=== PATIENT | male | born 1940 | race Caucasian/White ===

== ENCOUNTER 2017-12-24 12:50 | Day surgery (SDC) | payer MEDICARE ==
[~2017-12-24 12:50] MED LIST: 1-ME1LIQ PO; ASPI1TAB7 PO; FLON0.053; GEMF600T PO; LEVO.025 PO; LOSA100T3 PO; METF-324 PO; METO100T PO; OMEP40CA2 PO; SIMV40 PO; TRIA.1%T TOP
[2017-12-24 13:26] VITALS: BP 153/89; PULSE 75; RESP 20; TEMP 97.9; O2SAT 96
[2017-12-24] MEDS ORDERED: OMEP40CA2 (13:49)
[2017-12-24] MEDS ORDERED: SIMV40TA PO (13:49)
[2017-12-24] MEDS ORDERED: METF500T4 PO (13:49)
[2017-12-24] MEDS ORDERED: ASPI81TA23 PO (13:49)
[2017-12-24] MEDS ORDERED: LOSA100T PO (13:49)
[2017-12-24] MEDS ORDERED: METO-489 PO (13:49)
[2017-12-24] MEDS ORDERED: TRIAMCINOLONE ACETONIDE 40 MG/ML VIAL ONE (14:09)
[2017-12-24] MEDS ORDERED: IOHEXOL 300 MG/ML 50 ML BTL (for RAD DIAG) OTHER ONE (14:25)
[2017-12-24 14:30] VITALS: BP 153/87; PULSE 70; RESP 20; TEMP 97.9; O2SAT 94
--- NOTE | 2017-12-24 14:35 | PD.RAD ---
Post Procedure Progress Note Pre Procedure Diagnosis: (1) Shoulder pain, left Post Procedure Diagnosis: (1) Shoulder pain, left Procedure Date: Dec 24, 2017 Supervising Radiologist: Henrry Rdz JR Proceduralist/Assist: Hannah Chandra, RT(R), Marlee Mcmahon RT(R) Anesthesia: Local Plan of Activity Patient to Unit: ROPU Patient Condition: Good Additional Comments: Left shoulder steroid injection. Pt tolerated procedure well. See PACS Report for procedural detail/treatment Jr. Kendell,Henrry Gill MD Dec 24, 2017 14:35
--- NOTE | 2017-12-25 09:59 | RADRPT ---
EXAM DATE: 12/24/2017 2:43 PM EDT AGE/SEX: 77 years / Male INDICATIONS: Patient with history of left shoulder pain in need of left shoulder joint steroid injec tion. CLINICAL DATA: This is the patient's initial encounter. Patient reports that signs and symptoms have been present for > 1 year and indicates a pain score of 0/10. MEDICAL/SURGICAL HISTORY: Diabetes. Hypertension. Hypercholesterolemia. Osteoarthritis. Back surgery. Carpal tunnel surgery COMPARISON: No prior exams available for comparison. FLUORO TIME (min): 1.1 IMAGE SERIES: 2 CONTRAST (cc): 1cc [id number] MEDICATION(S): 1ml triamcinolone (Kenalog) IA 5ml Lidocaine IA DEVICE(S): 22 gauge needle was placed into the Left shoulder joint. RESPONSE: Pain Score Pre Procedure: 0/10 Pain Score Post Procedure: 0/10 . . PROCEDURE : The risks, benefits and alternatives to the procedure were explained and verbal and written consent w as obtained. The site was prepped in sterile fashion. Full sterile technique was used, including ca p, mask, sterile gloves and gown and a large sterile sheet. Hand hygiene and 2% chlorhexidine and/or betadine/alcohol prep was utilized per protocol for cutaneous antisepsis. The skin and subcutaneous tissues were infiltrated with local anesthetic solution. Under sterile conditions and using aseptic technique with fluoroscopic guidance the joint was punctur ed and positive contrast was injected to confirm intra-articular position. Following this, the presc ribed mixture of Kenalog and local anesthetics was injected. The patient tolerated the procedure wel l and there were no complications. CONCLUSION: 1. Uncomplicated therapeutic left shoulder injection performed under fluoroscopic guidance. Electronically signed by: Henrry Rdz MD 12/25/2017 9:58 AM EDT
== END 2017-12-24 14:45 | disposition home or self-care (01) ==
LOC: HROP 12:50 → HRIP 12:53 → HROP 14:45
PROVIDERS: ATTEND Orthopaedic Surgery
DX: M19.012 Primary osteoarthritis, left shoulder (principal); I10 Essential (primary) hypertension; E11.9 Type 2 diabetes mellitus without complications; E78.00 Pure hypercholesterolemia, unspecified; Z79.84 Long term (current) use of oral hypoglycemic drugs
CPT/HCPCS: 20610; J3301; Q9967